=== PATIENT | male | born 1965 | race Caucasian/White ===

== ENCOUNTER 2016-12-23 15:42 | Emergency (ER) | payer BC ==
[2016-12-23 17:36] VITALS: BP 144/90
--- NOTE | 2017-01-02 12:09 | ED ---
Laceration/Wound HPI - HPI Summary HPI Summary: Patient presents to the ED with CC of laceration to the left palm while cutting cheese. Tetanus not UTD. Pain is 2/10 and described as a dull ache. He denies any other symptoms. minimal blood loss. Denies dizziness, weakness or VILLAGRAN. Denies hx or infection or MRSA. laceration is 2cm, very superifical. Denies blood thinners. - History of Current Complaint Stated Complaint: LT HAND LAC Time Seen by Provider: 12/23/16 16:04 Hx Obtained From: Patient Mechanism of Injury: Sharp/Blunt Trauma Onset/Duration: Sudden Onset Aggravating: Nothing Alleviating: Nothing Onset Severity: Mild Current Severity: Mild Pain Intensity: 0 Pain Scale Used: 0-10 Numeric Associated Signs & Symptoms: Negative - Allergy/Home Medications Allergies/Adverse Reactions: Allergies Allergy/AdvReac Type Severity Reaction Status Date / Time No Known Allergies Allergy Verified 12/23/16 15:47 PMH/Surg Hx/FS Hx/Imm Hx Previously Healthy: Yes - Immunization History Hx Pertussis Vaccination: No Immunizations Up to Date: Unable to Obtain/Confirm Infectious Disease History: Denies: Traveled Outside the in Last 30 Days - Social History Occupation: Employed Full-time Lives: With Family Alcohol Use: Occasionally Hx Substance Use: No Substance Use Type: Reports: None Hx Tobacco Use: Yes Smoking Status (MU): Former Smoker Review of Systems Constitutional: Negative Eyes: Negative Cardiovascular: Negative Respiratory: Negative Genitourinary: Negative Positive: no symptoms reported, see HPI Musculoskeletal: Negative Positive: Other - 2cm laceration Neurological: Negative All Other Systems Reviewed And Are Negative: Yes Physical Exam Triage Information Reviewed: Yes Vital Signs On Initial Exam: Initial Vitals Temp Pulse Resp BP Pulse Ox 97.3 F 95 17 152/91 98 12/23/16 15:43 12/23/16 15:43 12/23/16 15:43 12/23/16 15:43 12/23/16 15:43 Vital Signs Reviewed: Yes Appearance: Positive: Well-Appearing, Well-Nourished Skin: Positive: Warm, Skin Color Reflects Adequate Perfusion, Other - 2cm laceration to the left palm Eyes: Positive: EOMI, Conjunctiva Clear Neck: Positive: Supple, No Lymphadenopathy Respiratory/Lung Sounds: Positive: Clear to Auscultation, Breath Sounds Present Cardiovascular: Positive: Normal, RRR, Pulses are Symmetrical in both Upper and Lower Extremities Musculoskeletal: Positive: Normal, Strength/ROM Intact Neurological: Positive: Speech Normal Psychiatric: Positive: Normal Diagnostics - Vital Signs Vital Signs Temp Pulse Resp BP Pulse Ox 12/23/16 17:35 97.8 F 71 16 144/90 12/23/16 15:43 97.3 F 95 17 152/91 98 - Laboratory Lab Statement: Any lab studies that have been ordered have been reviewed, and results considered in the medical decision making process. Laceration Repair Course/Dx - Course Course Of Treatment: Patient presents with superficial laceration to the left palm 2cm in length. no suture repair required. steri strips applied with bandaid overlying. he is ok for discharge. tetanus given. - Differential Dx Differental Diagnoses: Avulsion, Laceration, Puncture Wound - Clinical Impression Provider Diagnoses: Laceration of palm Discharge - Discharge Plan Condition: Stable Disposition: HOME Patient Education Materials: Skin Adhesive Care (ED), Steristrips (ED) Referrals: Non Staff,Doctor [Primary Care Provider] - Additional Instructions: Follow up as needed Keep area covered After 24 hours you may get the area wet Reapply the steri strips as needed
== END 2016-12-23 17:35 | disposition home or self-care (01) ==
LOC: ED 15:42
DX: S61.412A Laceration without foreign body of left hand, initial encounter (principal); W45.8XXA Other foreign body or object entering through skin, initial encounter; Y93.9 Activity, unspecified; Y92.9 Unspecified place or not applicable; Z87.891 Personal history of nicotine dependence
CPT/HCPCS: 99281